=== PATIENT | female | born 1970 | race Caucasian/White ===

== ENCOUNTER 2023-07-13 09:47 | Day surgery (SDC) | payer OTHER ==
[~2023-07-13] VITALS: Ht 165.1 cm; Wt 77.1 kg
[2023-07-13] MEDS ORDERED: LIDOCAINE 2% 100 MG/5 ML UJET TP ONE ×2 (11:13→12:10)
[2023-07-13] MEDS ORDERED: fentaNYL citrate 0.05 MG/ML VIAL ONE (11:13)
[2023-07-13] MEDS: fentaNYL citrate 0.05 MG/ML VIAL IVP ONE (11:28)
== END 2023-07-13 12:45 | disposition home or self-care (01) ==
LOC: MDS 09:47 → MMU 09:48 → MDS 12:45
PROVIDERS: ATTEND Internal Medicine Gastroenterology
DX: Z12.11 Encounter for screening for malignant neoplasm of colon (principal); K63.5 Polyp of colon; K64.8 Other hemorrhoids; Z90.710 Acquired absence of both cervix and uterus; Z98.890 Other specified postprocedural states
CPT/HCPCS: 45385; J3010